=== PATIENT | male | born 1985 | race Caucasian/White ===

== ENCOUNTER → 2019-04-09 | Outpatient (CLI) | payer OTHER, SELFPAY ==
--- NOTE | 2019-04-09 11:54 | RAD_ITS ---
STUDY: X-RAY - RIGHT WRIST REASON FOR EXAM: Male, 33 years old. Wrist pain TECHNIQUE: 3 view(s) of the wrist were obtained. COMPARISON: None. FINDINGS: Normal visualized distal radius and ulna. Normal radiocarpal articulation. Normal distal radioulnar articulation. Normal carpal bones. Normal carpal articulations. Normal carpometacarpal articulation of the thumb. Normal second through fifth carpometacarpal articulations. Normal visualized metacarpal bones. The soft tissue structures are unremarkable. RAD/Wrist min 3 Views IMPRESSION: Normal x-ray examination of the wrist. Electronically Signed: Lukas Stevens DO at 12:55 EDT Tel , Service support ,
== END | disposition home or self-care (01) ==
LOC: HPRAD 11:51
PROVIDERS: Referring Provider Physician Assistant; Visit Provider Physician Assistant
DX: S69.91XA Unspecified injury of right wrist, hand and finger(s), initial encounter (principal)
CPT/HCPCS: 73110

== ENCOUNTER → 2019-04-24 | Outpatient (CLI) | payer OTHER, SELFPAY ==
[2019-04-23 06:58] VITALS: BMI 29.0
--- NOTE | 2019-04-24 09:31 | MRI_ITS ---
STUDY: MRI RIGHT WRIST WITHOUT CONTRAST REASON FOR EXAM: Male, 33 years old. Right ulnar wrist pain. Twisting injury 2 weeks ago. TECHNIQUE: Standardized fat and water weighted pulse sequences were obtained in all 3 orthogonal planes. COMPARISON: X-ray dated 04/09/2019. FINDINGS: Acute/subacute mild sprain of the triangular fibrocartilage complex and volar capsular ligament complex (axial images 22 through 26 series 7). Normal scapholunate ligament. Normal dorsal ligaments. Normal visualized distal radius and ulna. Normal distal radioulnar Articulation (DRUJ). Normal carpal bones. Normal radiocarpal, intercarpal and midcarpal articulations. Normal pisotriquetral articulation. Normal extensor tendons. Normal flexor tendons. Normal carpal tunnel with a normal median nerve. Normal carpometacarpal articulation of the thumb. Normal second through fifth carpometacarpal articulations. Normal visualized metacarpal bones. No solid, cystic or lipomatous soft tissue lesions. MRI/Upper Ext Joint Only(Routine) IMPRESSION: Acute/subacute TFCC and volar capsular ligament sprains Electronically Signed: Mack Black DO at 12:02 EDT Tel , Service support ,
== END | disposition home or self-care (01) ==
PROVIDERS: Family Provider Family Medicine; PCP Family Medicine; Referring Provider Physician Assistant Surgical; Visit Provider Physician Assistant Surgical
DX: S66.911A Strain of unspecified muscle, fascia and tendon at wrist and hand level, right hand, initial encounter (principal)
CPT/HCPCS: 73221